=== PATIENT | male | born 1935 | race Caucasian/White ===

== ENCOUNTER 2016-06-03 15:35 | Emergency (ER) | payer MEDICARE, OTHER ==
[~2016-06-03 15:35] MED LIST: ASPIRINBUFF PO; BACTRIM DS TABL1 TA1 PO; CALAN PO; CHEWABLE ASPIRI81 MG PO; CIPRO250 M1 PO; DYAZIDE 37.5/251 CAP PO; FISH OIL 1,0001 CAP PO; FISH OIL500 M2 PO; GEMFIBROZIL PO; GLUCOPHAGE500 M1; GLUCOPHAGE500 MG PO; HYDROCHLOROTHIA25 MG PO; ISOSORBIDE DINI30 MG PO; LEVATOL PO; LISINOPRIL30 MG PO; METOPROLOL SUCC25 MG PO; METOPROLOL TAR25 MG PO; SIMVASTATIN40 MG PO; ZESTRIL10 MG PO; ZOCOR PO
== END 2016-06-03 16:43 | disposition home or self-care (01) ==
LOC: SED 15:35
DX: S61.211A Laceration without foreign body of left index finger without damage to nail, initial encounter (principal); I10 Essential (primary) hypertension; E11.9 Type 2 diabetes mellitus without complications; J44.9 Chronic obstructive pulmonary disease, unspecified; W26.0XXA Contact with knife, initial encounter; Y92.009 Unspecified place in unspecified non-institutional (private) residence as the place of occurrence of the external cause
CPT/HCPCS: 12002; 99283

== ENCOUNTER 2016-08-17 12:22 | Emergency (ER) | payer MEDICARE, OTHER ==
--- NOTE | ~2016-08-17 | CR72 ---
[facility] A Service of [facility] & [facility] RADIOLOGY TEXT RESULTS PATIENT: MEL CONLEY LOCATION: SED : 34 UNIT #: [id number] AGE: [address]: Srinivasa Gao MD SEX: M ORDER DR: [id number] [place] [id number] E MR#: [id number] Acc #: [id number] NAME: MEL CONLEY. : 1935 SEX: M STUDY DATE/TIME: 08/17/2016 14:22 UNIT: SED ROOM: STUDY DESCRIPTION: CR Chest Single View Portable Attending Physician: Srinivasa Gao M.D. Ordering Physician: Srinivasa Gao M.D. Primary Care Physician: No Primary Care Physician MEDICAL IMAGING REPORT This report is preliminary unless electronic signature is present. EXAM Portable chest. HISTORY Shortness of air today. Loss of balance. Dizzy. FINDINGS The cardiac size and pulmonary vascularity are normal. Mild mid-right thoracic curve. No airspace infiltrates or effusions. Mild scattered linear atelectasis or fibrotic scarring, but no evidence of active disease. IMPRESSION No acute findings and no active disease. Dictated by... Blayne Mcneill M.D. THIS IS AN ELECTRONICALLY VERIFIED REPORT Blayne Mcneill M.D. at 08/17/2016 10:23 PM DFL/maddison TD: 08/17/2016 15:17 JOB #: [id number] MEDICAL IMAGING REPORT Page 1 of 1
--- NOTE | ~2016-08-17 | CT71 ---
[facility] A Service [facility] RADIOLOGY TEXT RESULTS PATIENT: MEL CONLEY LOCATION: SED : 34 UNIT #: [id number] AGE: [address]: Srinivasa Gao MD SEX: M ORDER DR: [id number] [place] [id number] E MR#: [id number] Acc #: [id number] NAME: MEL CONLEY : 1935 SEX: M STUDY DATE/TIME: 08/17/2016 14:20 UNIT: SED ROOM: STUDY DESCRIPTION: CT Head Wo Contrast Attending Physician: Srinivasa Gao M.D. Ordering Physician: Srinivasa Gao M.D. Primary Care Physician: No Primary Care Physician MEDICAL IMAGING REPORT This report is preliminary unless electronic signature is present. EXAM CT brain without contrast. HISTORY Dizzy today. No injury. TECHNIQUE This CT exam was performed with one or more of the following radiation dose reduction techniques: automatic exposure control, adjustment of mA and/or kV according to patient size, and iterative reconstruction. FINDINGS CT brain without contrast demonstrates no intracranial hemorrhage, mass or edema. No midline shift or ventricular dilatation or extraaxial fluid collection. Zxyj-si-whibxyhn generalized cerebral cortical atrophy and minimal chronic ischemic changes in the deep white matter bilaterally. IMPRESSION No acute findings. Dictated by... Blayne Mcneill M.D. THIS IS AN ELECTRONICALLY VERIFIED REPORT Blayne Mcneill M.D. at 08/17/2016 10:23 PM DFL/prasannaw TD: 08/17/2016 14:52 JOB #: [id number] [facility] A Service [facility] RADIOLOGY TEXT RESULTS PATIENT: MEL CONLEY LOCATION: SED : 34 UNIT #: [id number] AGE: [address]: Srinivasa Gao MD SEX: M ORDER DR: MEDICAL IMAGING REPORT Page 1 of 1
[2016-08-17] MEDS ORDERED: AMLODIPINE-OLM1 EAC3 (12:24)
[2016-08-17 13:26] LABS: URINE SOURCE CLEAN CATCH
[2016-08-17 13:29] LABS: URINE APPEARANCE CLEAR; URINE BILIRUBIN NEG (NEG); URINE BLOOD TRACE-LYSED (NEG); URINE COLOR YELLOW; URINE GLUCOSE NEG (NORM); URINE KETONE NEG (NEG); URINE LEUKOCYTE ESTERASE NEG (NEG); URINE NITRATE NEG (NEG); URINE PROTEIN 2+ (NEG)
[2016-08-17 13:42] LABS: MICRO INDICATED? YES
[2016-08-17 13:46] LABS: CULTURE INDICATED? NO; URINE BACTERIA NEG (NEG); URINE SQUAMOUS EPITHELIAL CELL N /[HPF]; URINE WBC NEG /[HPF] (0-5)
[2016-08-17 14:22] LABS: BASOPHIL% 0.3 % (0-2.5); EOSINOPHIL% 0.1 % (0.0-7.0); HEMATOCRIT 40.4 % (38.0-50.0); HEMOGLOBIN 13.8 gm/dL (13.0-16.0); LYMPHOCYTE# 0.7 X10e3 (1.0-3.5); LYMPHOCYTE% 9.5 % (17.0-45.0); MEAN CELL VOLUME 89.9 FL (83-96); MEAN CORPUSCULAR HEMOGLOBIN 30.8 PG (28-34); MEAN CORPUSCULAR HGB CONC 34.2 g/dL (30-36); MEAN PLATELET VOLUME 9.1 FL (6.5-11.5); MONOCYTE# 0.5 X10e3 (0-1.0); MONOCYTE% 6.1 % (3.0-12.0); NEUTROPHIL# 6.4 X10e3 (1.5-7.1); PLATELET COUNT 92 X10e3 (140-420); RED BLOOD COUNT 4.49 X10e (3.90-5.60); RED CELL DISTRIBUTION WIDTH 13.7 % (11.0-15.5); WHITE BLOOD COUNT 7.6 X10e3 (4.0-10.5)
[2016-08-17 14:23] LABS: DIFF IND NO
[2016-08-17 14:38] LABS: POC - CKMB <1.0 ng/mL (0.0-7.9); POC - TROPONIN <0.05 ng/mL (<=0.05)
[2016-08-17 14:40] LABS: BILIRUBIN,TOTAL 0.8 mg/dL (0.2-2.0); BUN/CREATININE RATIO 21.11; CALCIUM SERUM 8.8 mg/dL (8.4-10.2); CREATININE SERUM 0.9 mg/dL (0.6-1.4); GLOM FILT RATE Estimated 79.3 mL/min (>60); POTASSIUM 3.8 mmol/L (3.5-5.1)
== END 2016-08-17 15:16 | disposition home or self-care (01) ==
LOC: SED 12:22
PROVIDERS: Emergency Medicine
DX: E86.0 Dehydration (principal); E11.9 Type 2 diabetes mellitus without complications; I10 Essential (primary) hypertension; Z88.5 Allergy status to narcotic agent
CPT/HCPCS: 36415; 70450; 71010; 80053; 81003; 82553; 84484; 85025; 87086; 99284

== ENCOUNTER → 2016-10-06 | Outpatient (CLI) | payer MEDICARE, OTHER ==
[~2016-10-06] MED LIST changes: +AMLODIPINE-OLM1 EAC3
--- NOTE | ~2016-10-06 | CR63 ---
[facility] A Service of [facility] & [facility] RADIOLOGY TEXT RESULTS PATIENT: MEL CONLEY LOCATION: [facility] : 34 UNIT #: [id number] AGE: [address]: Pavel Love MD SEX: M ORDER DR: [id number] [facility] [address] [place], [place] [address] [id number] O MR#: [id number] Acc #: [id number] NAME: MEL CONLEY. : 1935 SEX: M STUDY DATE/TIME: 10/06/2016 8:45 UNIT: [facility] ROOM: STUDY DESCRIPTION: CR Chest 2 View Attending Physician: Pavel Love M.D. Referring Physician: Pavel Love M.D. Ordering Physician: Pavel Love M.D. Primary Care Physician: Raymond Combs M.D. MEDICAL IMAGING REPORT This report is preliminary unless electronic signature is present EXAM Chest PA and lateral, 10/06/2016 HISTORY Shortness of breath and cough today. Benign essential hypertension, COPD exacerbation. FINDINGS PA and lateral examination of the chest upright shows a good expansion of the parenchyma with a normal distribution of the pulmonary vascularity. There is no indication of congestion, effusion, infiltrate, tumor, or nodular density. The pleural reflections and diaphragmatic contours are normal. The cardiac silhouette and mediastinal anatomy is within normal limits. IMPRESSION Normal chest. Dictated by... Gordo aCmpa M.D. THIS IS AN ELECTRONICALLY VERIFIED REPORT Gordo Campa M.D. at 10/07/2016 2:11 PM DANIEL/bree TD: 10/07/2016 03:45 JOB #: [id number] MEDICAL IMAGING REPORT Page 1 of 1 COPY
[2016-10-06 08:48] LABS: HEMOGLOBIN 13.1 gm/dL (13.0-16.0); MEAN CELL VOLUME 91.8 FL (83-96); MEAN CORPUSCULAR HEMOGLOBIN 30.1 PG (28-34); MEAN CORPUSCULAR HGB CONC 32.8 g/dL (30-36); MEAN PLATELET VOLUME 9.8 FL (6.5-11.5); RED BLOOD COUNT 4.35 X10e (3.90-5.60); RED CELL DISTRIBUTION WIDTH 14.4 % (11.0-15.5); WHITE BLOOD COUNT 6.5 X10e3 (4.0-10.5)
[2016-10-06 09:59] LABS: ALBUMIN SERUM 3.8 g/dL (3.5-5.0); BILIRUBIN,TOTAL 0.8 mg/dL (0.2-2.0); BUN/CREATININE RATIO 25.83; CALCIUM SERUM 9.1 mg/dL (8.4-10.2); CREATININE SERUM 1.2 mg/dL (0.6-1.4); POTASSIUM 4.4 mmol/L (3.5-5.1); PROTEIN TOTAL SERUM 7.4 g/dL (6.0-8.3)
== END | disposition home or self-care (01) ==
LOC: CRAD 08:29
PROVIDERS: Urology
DX: N39.0 Urinary tract infection, site not specified (principal); I10 Essential (primary) hypertension; J44.1 Chronic obstructive pulmonary disease with (acute) exacerbation
CPT/HCPCS: 36415; 71020; 80053; 85027; G0103